=== PATIENT | male | born 1970 | race Caucasian/White ===

== ENCOUNTER 2021-12-31 06:00 | Day surgery (SDC) | payer OTHER ==
[~2021-12-31] VITALS: Ht 190.5 cm; Wt 91.7 kg
[2021-12-31] MEDS ORDERED: MOBIC15 MG PO (06:42)
[2021-12-31] MEDS ORDERED: VITAMIN C500 MG PO (06:43)
[2021-12-31 07:03] VITALS: BP 131/94; PULSE 59; TEMP 97.8
[2021-12-31] MEDS ORDERED: ASPIRIN 81M81 MG/TA2 PO (08:16)
[2021-12-31] MEDS ORDERED: CEPHALEXIN500 M1 PO (08:16)
[2021-12-31] MEDS ORDERED: ULTRAM 50MG TAB50 MG PO (08:16)
[2021-12-31 10:00] VITALS: BP 114/66; PULSE 50; TEMP 97.4
--- NOTE | 2021-12-31 10:00 | NUR ---
PT TO BAY 1 PER CART FROM PACU. VS OBTAINED. PT RESTING COMFORTABLY AND DENIES ANY NEEDS. CALL LIGHT WITHIN REACH.
[2021-12-31 10:15] VITALS: BP 110/76; PULSE 47
--- NOTE | 2021-12-31 10:15 | NUR ---
PT TOLERATING OJ WITHOUT DIFFICULTY. DENIES ANY NEEDS.
[2021-12-31 10:30] VITALS: BP 140/68; PULSE 67
[2021-12-31 10:45] VITALS: BP 123/76; PULSE 53
--- NOTE | 2021-12-31 11:25 | NUR ---
1110-IV DC'D AT THIS TIME. 1115-DISCHARGE EDUCATION COMPLETED WITH PT AND HIS . VERBALIZED UNDERSTANDING OF HOME AND FOLLOW UP CARE. ALL QUESTIONS ANSWERED. DISCHARGE PAPERWORK GIVEN TO PT. 1125-PT OFF UNIT PER WHEELCHAIR. PT DISCHARGED TO HOME WITH PER PERSONAL VEHICLE.
== END 2021-12-31 11:25 | disposition home or self-care (01) ==
LOC: SDCO 06:00
DX: M62.89 Other specified disorders of muscle (principal); M23.231 Derangement of other medial meniscus due to old tear or injury, right knee; Z87.891 Personal history of nicotine dependence
CPT/HCPCS: J0690; J1100; J1885; J2405; J2704; J3010; J7120